=== PATIENT | female | born 1955 | race Caucasian/White ===

== ENCOUNTER → 2021-01-06 | Emergency (ER) | payer OTHER ==
[~2021-01-06] VITALS: Ht 162.6 cm; Wt 149.7 kg
[~2021-01-06] MED LIST: ACTEMRA400 MG/20 IV; BISCOLAX10 MG RC; CARAFATE 1 GM TA1 G1 PO; COLACE100 MG PO; FOLIC ACID1 MG PO; LEVOTHYROXINE 0.1 MG PO; MAG-AL LIQUID30 ML PO; METHOTREXATE 22.5 M1 PO; NORCO 5-325 TA1 EACH PO; OXYCONTIN10 M1 PO; PERCOCET PO; PREDNISONE 20 M20 MG PO; PREDNISONE 5 MG5 M1 PO; REMICADE 1100 MG/VIA IV; SENOKOT-S1 TA1 PO; TYLENOL325 MG PO; VITAMIN D2000 UNIT PO; XARELTO10 MG PO
[2021-01-06 16:17] VITALS: BP 144/65
[2021-01-06 17:50] LABS: ABSOLUTE NEUTROPHILS 7.7 thou/uL (1.4-8.2); BASOPHILS 0.7 % (0.0-2.0); HEMATOCRIT 48.3 % (37.0-47.0); HEMOGLOBIN 16.5 gm/dL (12.0-15.0); LYMPHOCYTES 14.6 % (24.0-44.0); MCHC 34.2 g/dL (28.0-37.0); MCV 99.5 fL (80.0-100.0); MONOCYTES 12.6 % (1.0-8.0); PLATELET COUNT 150 thou/uL (150-400); POLYS 70.1 % (36.0-66.0); RBC 4.85 mil/uL (4.20-5.00); RDW 13.5 % (10.5-14.5)
[2021-01-06 18:03] LABS: APTT 23.9 Seconds (24.5-32.8); D-DIMER 1.15 ug/mLFEU (0.19-0.50); INR 1.03; PROTIME 11.2 Seconds (10.5-12.1)
[2021-01-06 18:07] LABS: CALCIUM 9.2 mg/dL (8.5-10.1); CREATININE 0.8 mg/dL (0.6-1.0)
[2021-01-06 18:12] LABS: ALBUMIN 3.8 g/dL (3.4-5.0); TOTAL BILIRUBIN 0.3 mg/dL (0.2-1.0); TOTAL PROTEIN 7.1 g/dL (6.4-8.2)
[2021-01-06 18:36] LABS: URINE BILIRUBIN NEGATIVE (Negative); URINE BLOOD NEGATIVE (Negative); URINE CLARITY CLEAR; URINE COLOR YELLOW; URINE GLUCOSE-RANDOM* NEGATIVE (Negative); URINE KETONES NEGATIVE (Negative); URINE LEUKOCYTES-REFLEX NEGATIVE (Negative); URINE NITRITE-REFLEX NEGATIVE (Negative); URINE PROTEIN (DIPSTICK) NEGATIVE (Negative); URINE SPECIFIC GRAVITY >= 1.030 (1.005-1.035); URINE UROBILINOGEN 0.2 E.U./dl (0.2-1.0)
[2021-01-06 22:15] VITALS: BP 00/00; BP 110/72
== END ==
LOC: ER 16:10 → EROBS 21:15
PROVIDERS: Nurse Practitioner
DX: U07.1 COVID-19 (principal); J10.1 Influenza due to other identified influenza virus with other respiratory manifestations; R06.00 Dyspnea, unspecified; J12.82 Pneumonia due to coronavirus disease 2019; E03.9 Hypothyroidism, unspecified; Z79.899 Other long term (current) drug therapy; Z79.891 Long term (current) use of opiate analgesic; Z88.0 Allergy status to penicillin; Z91.041 Radiographic dye allergy status

== ENCOUNTER 2021-01-08 14:45 | Inpatient (IN) | payer OTHER ==
[~2021-01-08] VITALS: Ht 162.6 cm; Wt 149.7 kg
[~2021-01-08 14:45] MED LIST changes: -ACTEMRA400 MG/20 IV
[2021-01-08 14:51] VITALS: BP 106/68
[2021-01-08 16:18] LABS: HEMATOCRIT 48.1 % (37.0-47.0); HEMOGLOBIN 16.2 gm/dL (12.0-15.0); MCH 33.8 pg (26.0-34.0); MCHC 33.7 g/dL (28.0-37.0); MCV 100.2 fL (80.0-100.0); RBC 4.8 mil/uL (4.20-5.00); RDW 13.6 % (10.5-14.5); WBC 13.2 thou/uL (4.0-11.0)
[2021-01-08 16:24] LABS: ANION GAP 10 mmol/L (7-16); BUN 19 mg/dL (7-18); CALCIUM 8.5 mg/dL (8.5-10.1); CHLORIDE 108 mmol/L (98-107); CO2 28 mmol/L (21-32); GLUCOSE 104 mg/dL (74-106); POTASSIUM 4.1 mmol/L (3.5-5.1); SODIUM 146 mmol/L (136-145)
[2021-01-08 16:33] LABS: ALBUMIN 3.7 g/dL (3.4-5.0); SGOT 35 U/L (15-37); SGPT 50 U/L (30-65); TOTAL BILIRUBIN 0.5 mg/dL (0.2-1.0); TOTAL PROTEIN 6.9 g/dL (6.4-8.2); TROPONIN-I <0.06 ng/mL (<0.06)
[2021-01-09 01:00] VITALS: BP 137/75
[2021-01-09 05:19] VITALS: BP 143/69
[2021-01-09 06:00] VITALS: BP 128/73
--- NOTE | 2021-01-09 06:44 | NUR ---
PT ADMITTED FROM ER WITH C/O SOB AT 0600.PT IS A/O X4.PT IS UP WITH X1 ASSIST TO THE BATHROOM AND USES A SCOOTER FOR MOBILIZATION.PT ADMISSION STARTED.PT IS ON 2L OF O2 VIA NC.PT HAS A HISTORY OF RHEUMATOID ARTHRITIS AND RATE PAIN 6/10 WHEN SHE IS IN PAIN.WILL ENDORSE TO DAY NURSE
[2021-01-09 08:39] VITALS: BP 138/67
[2021-01-09 08:47] LABS: ABSOLUTE NEUTROPHILS 6.7 thou/uL (1.4-8.2); BASOPHILS 0.5 % (0.0-2.0); EOSINOPHILS 2.5 % (0.0-3.0); HEMATOCRIT 46.3 % (37.0-47.0); HEMOGLOBIN 15.5 gm/dL (12.0-15.0); LYMPHOCYTES 19.5 % (24.0-44.0); MCH 33.8 pg (26.0-34.0); MCHC 33.4 g/dL (28.0-37.0); MCV 101.3 fL (80.0-100.0); MONOCYTES 13.7 % (1.0-8.0); PLATELET COUNT 144 thou/uL (150-400); POLYS 63.8 % (36.0-66.0); RBC 4.57 mil/uL (4.20-5.00); RDW 13.4 % (10.5-14.5); WBC 10.4 thou/uL (4.0-11.0)
[2021-01-09 09:05] LABS: CALCIUM 8.3 mg/dL (8.5-10.1); CREATININE 0.7 mg/dL (0.6-1.0); MAGNESIUM 1.6 mg/dL (1.8-2.4); PHOSPHORUS 4.1 mg/dL (2.5-4.9); POTASSIUM 4.1 mmol/L (3.5-5.1)
--- NOTE | 2021-01-09 09:22 | EKG ---
[address] [address] ELECTROCARDIOGRAM REPORT Name: TERESA KIRKMejia YOUSIFE Room #: 464-P ADM IN M.R.#: [id number] Admission: 01/08/21 Attend Phys: Katja Hobbs MD Discharge: Date of : 59 Report #: [id number] [facility] ED Test Date: 2021-01-08 Test Time: 15:00:45 Pat Name: RM KIRK Department: Room: 464 Gender: F Manager Park: RONALDO : 1955 Requested By: Juani Arias Order Number: [id number] MD: Balbir Jamison Measurements Intervals [place] Rate: 76 P: 44 TX: 143 QRS: 8 QRSD: 90 T: 34 QT: 326 QTc: 367 Interpretive Statements Sinus arrhythmia Probable left atrial enlargement Low voltage, precordial leads Baseline wander in lead(s) V1 Compared to ECG 01/28/2014 14:00:30 Low QRS voltage now present Sinus rhythm no longer present Electronically Signed On 01-09-2021 9:22:33 CDT by Balbir Jamison [email or web address] <ELECTRONICALLY SIGNED> By: Balbir Jamison MD, FACC 01/09/21 0922 1500 1500 Balbir Jamison MD, [facility] /EPI
[2021-01-09] MEDS ORDERED: ACTEMRA400 MG/20 IV (15:03)
--- NOTE | 2021-01-09 17:46 | NUR ---
Patient is aware she will be NPO after midnight for Kyphoplastay tomorrow. She is having pain to her left side and back. Pain medication given. She is most comfortable supine with little movement.
[2021-01-09 20:20] VITALS: BP 139/82
--- NOTE | 2021-01-10 03:15 | NUR ---
PT CARE ASSUMED WITH PT AT BEDSIDE AT 1900.PT IS A/O X4.PT IS UP WITH STANDBY ASSIST TO BATHROOM AND CALLS APPROPRIETELY FOR HELP.PT C/O GENERALIZED PAIN AND PAIN MANAGED WITH OXYCODONE.PT IS ON ROOM AIR AND NO C/O OF SOA WITH ACTIVITY.WILL CONTINUE TO MONITOR
[2021-01-10 07:42] VITALS: BP 136/70
[2021-01-10 08:55] LABS: BASOPHILS 0.3 % (0.0-2.0); HEMOGLOBIN 14.8 gm/dL (12.0-15.0); LYMPHOCYTES 8.4 % (24.0-44.0); MCH 33.3 pg (26.0-34.0); MCHC 32.9 g/dL (28.0-37.0); MCV 101.1 fL (80.0-100.0); MONOCYTES 10.2 % (1.0-8.0); PLATELET COUNT 133 thou/uL (150-400); POLYS 81.1 % (36.0-66.0); RBC 4.45 mil/uL (4.20-5.00); RDW 13.6 % (10.5-14.5); WBC 19.7 thou/uL (4.0-11.0)
[2021-01-10 09:20] LABS: ALBUMIN 3.5 g/dL (3.4-5.0); CALCIUM 8.7 mg/dL (8.5-10.1); CREATININE 0.8 mg/dL (0.6-1.0); MAGNESIUM 2.1 mg/dL (1.8-2.4); PHOSPHORUS 3.9 mg/dL (2.6-4.7); POTASSIUM 4.2 mmol/L (3.5-5.1); TOTAL BILIRUBIN 0.4 mg/dL (0.2-1.0); TOTAL PROTEIN 6.6 g/dL (6.4-8.2)
[2021-01-10 16:42] VITALS: BP 146/61
--- NOTE | 2021-01-10 17:02 | NUR ---
PT ADMITTED RELATED TO ACUTE HYPOXEMIC RESPITATORY FAILURE. CM REVIEWED CHART AND SPOKE WITH CARE TEAM. CM MET WITH PT AT BEDSIDE THIS DAY. PT APPEARED TO BE A&O X4. CM ROLE INTRODUCED. PT INDICATED SHE LIVES IN A HOUSE WITH HER SIG OTHER WITH 2 STEPS TO ENTER AND NO STEPS INSIDE. PT INDICATED SHE HAS A SCOOTER, CANE, AND FWW FOR USE AT HOME. 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 EXERCISE OX TESTING DONE AND PT DIDN'T QUALIFY FOR HOME O2 UPON DC. PT HAD REPEAT CHEST XRAY DONE. CARE TEAM INDICATED NO DC HOME THIS DAY. CM FOLLOWING REGARDING DC PLANNING.
[2021-01-10 19:36] VITALS: BP 135/78
--- NOTE | 2021-01-10 20:15 | NUR ---
Assumed pt care this am, pt is SOB with exertion was able to work with PT today. Diet and medications are tolerated well. Bronch is scheduled for OP, chest x-ray was done in the pm. POC followed. Endorsed to the night nurse.
--- NOTE | 2021-01-11 05:48 | NUR ---
Assumed pt care at 1900. A/OX4,VSS.Up with SBA/cane,gets dyspnea on exertion on RA and declines need for oxygen. All meds administered as ordered w/o problems. C/o back pain medicated per EMAR with relief reported. Resting on the recliner at this time,will continue to monitor pt.
[2021-01-11 07:00] VITALS: BP 149/79
[2021-01-11 07:33] VITALS: BP 122/83
[2021-01-11 08:17] LABS: HEMATOCRIT 45.3 % (37.0-47.0); HEMOGLOBIN 15.2 gm/dL (12.0-15.0); MCH 33.7 pg (26.0-34.0); MCHC 33.5 g/dL (28.0-37.0); MCV 100.7 fL (80.0-100.0); PLATELET COUNT 155 thou/uL (150-400); RDW 13.5 % (10.5-14.5); WBC 20.1 thou/uL (4.0-11.0)
[2021-01-11 08:42] LABS: ALBUMIN 3.7 g/dL (3.4-5.0); CALCIUM 8.5 mg/dL (8.5-10.1); CREATININE 0.8 mg/dL (0.6-1.0); POTASSIUM 4.4 mmol/L (3.5-5.1); TOTAL BILIRUBIN 0.4 mg/dL (0.2-1.0)
[2021-01-11 09:02] LABS: ABSOLUTE NEUTROPHILS 17.7 thou/uL (1.4-8.2); PLATELET ESTIMATE NORMAL
--- NOTE | 2021-01-11 10:54 | NUR ---
PT IS A&O*4, ROOM AIR, NO PAIN, CONGESTIVE COUGH WITHOUT SPUTUM OBERSERVED. PT GET UP BY CHAIM. NSR ON TELE. BRONCHOSCOPY IS SCHEDULED TOMORROW AND POSSIBLE BE DC TODAY TO HOME. WILL KEEP MONITOR PT'S SAFETY AND GIVE IV ABX PER ORDER.
[2021-01-11] MEDS ORDERED: LEVOFLOXACIN750 MG PO ×2 (11:59→14:05)
[2021-01-11] MEDS ORDERED: PREDNISONE 20 M20 M1 PO ×2 (11:59→14:05)
[2021-01-11] MEDS ORDERED: TUSSIN COU15 MG/5 M1 PO ×2 (11:59→14:05)
[2021-01-11 12:08] VITALS: BP 122/83
--- NOTE | 2021-01-11 12:12 | NUR ---
CARE TEAM INDICATED THAT PT IS MEDICALLY STABLE TO DISCHARGE HOME THIS DAY. PT IS TO DC HOME TO SELF CARE. PT'S DIDN'T QUALIFY FOR HOME O2 AND CARE TEAM INDICATED SHE DOESN'T NEED HH SERVICES UPON DC. PT HAS ALL OTHER NEEDED DME. FAMILY TO PROVIDE TRANSPORT HOME. NO OTHER CM INTERVENTION INDICATED. CASE CLOSED.
--- NOTE | 2021-01-11 13:12 | 2DMMODE ---
[facility] [place] [address] 2 D/M-MODE ECHOCARDIOGRAM Name: YELENARM CONCEPCION Room #: 464-P ADM IN M.R.#: [id number] Admission: 01/08/21 Attend Phys: Katja Hobbs MD Discharge: Date of : 59 Report #: [id number] THIS REPORT FOR: cc: Shoshana Burgos MD, Melanie MD Santiago, Patrick MD [facility] ~ APPROVED REPORT Study performed: 01/11/2021 12:35:23 EXAM: Comprehensive 2D, Doppler, and color-flow Echocardiogram Patient Location: Bedside Room #: 464 Status: routine BSA: 2.42 HR: 80 bpm BP: 122/83 mmHg Rhythm: NSR Other Information Study Quality: Fair Technically limited study due to morbid obesity, COPD. Indications Pneumonia, CHF new onset, COPD. 2D Dimensions RVDd: 39.35 mm IVSd: 12.52 (7-11mm) LVOT Diam: 19.64 (18-24mm) LVDd: 33.29 mm PWd: 12.89 (7-11mm) LVDs: 24.59 (25-40mm) Left Atrium: 45.83 (27-40mm) Aortic Root: 27.67 mm Volumes Left Atrial Volume (Systole) Single Plane 4CH: 41.88 mL Single Plane 2CH: 48.09 mL LA ESV Index: 20.00 mL/m2 Aortic Valve AoV Peak Martinez.: 1.86 m/s AO Peak Gr.: 13.87 mmHg LVOT Max P.[address] [facility] [address] [place] [address] 2 D/M-MODE ECHOCARDIOGRAM Name: RM KIRK Room #: 464-P [facility] IN [facility]#: [id number] Admission: 01/08/21 Attend Phys: Katja Hobbs, Discharge: Date of : 59 Report #: [id number] LVOT Max V: 1.08 m/s MARYBETH Vmax: 1.75 cm2 Mitral Valve E/A Ratio: 1.4 MV Decel. Time: 169.24 ms MV E Max Martinez.: 1.13 m/s MV A Martinez.: 0.79 m/s MV PHT: 49.08 ms IVRT: 72.66 ms Pulmonary Valve PV Peak Martinez.: 1.27 m/s PV Peak Gr.: 6.42 mmHg Pulmonary Vein P Vein S: 0.90 m/s P Vein A: 0.36 m/s P Vein D: 0.53 m/s P Vein A Dur.: 96.9 msec P Vein S/D Ratio: 1.70 Tricuspid Valve RAP Estimate: 15.00 mmHg Left Ventricle The left ventricle is normal size. There is normal LV segmental wall motion. Mild concentric left ventricular hypertrophy. Left ventricular systolic function is normal. LVEF is 55-60%. The left ventricular diastolic function is normal. Right Ventricle The right ventricle is normal size. The right ventricular systolic function is normal. Atria The left atrium size is normal. The right atrium size is normal. Aortic Valve The aortic valve is not well visualized. No aortic regurgitation is present. There is no aortic valvular stenosis. Mitral Valve The mitral valve is normal in structure. Trace mitral regurgitation. No evidence of mitral valve stenosis. Tricuspid Valve The tricuspid valve is normal in structure. There is no tricuspid [facility] [address] [place] [address] 2 D/M-MODE ECHOCARDIOGRAM Name: RM KIRK Room #: 464-P [facility] IN M.R.#: [id number] Admission: 01/08/21 Attend Phys: Katja Hobbs, Discharge: Date of : 59 Report #: [id number] valve regurgitation noted. Unable to assess PA pressure. Pulmonic Valve Pulmonic valve is not well visualized. Great Vessels The aortic root is normal in size. IVC is dilated and collapses <50% with inspiration. Pericardium There is no pericardial effusion. <Conclusion> Technically difficult study Normal left ventricle size Mild LVH Ejection fraction 60% Normal right ventricuLar size/function Normal atrial size Normal aortic/mitral valve structure and function No tricuspid valve insufficiency Normal aortic root size No pericardial effusion <ELECTRONICALLY SIGNED> By: Balbir Jamison MD, FACC 01/11/211311 11 11 Balbir Jamison MD, [facility] /INF
[2021-01-11 13:40] VITALS: BP 122/83
[2021-01-12] MEDS ORDERED: HYDROCODON-ACE1 EAC7 PO (13:46)
[2021-01-12] MEDS ORDERED: DOXYCYCLINE HY100 M3 PO (13:47)
[2021-01-12] MEDS ORDERED: PLAQUENIL200 MG (13:48)
[2021-01-12] MEDS ORDERED: LEVOTHYROXINE100 MC2 PO (14:38)
[2021-01-12] MEDS ORDERED: LEVOFLOXACIN750 MG PO (14:38)
== END 2021-01-11 15:29 | disposition home or self-care (01) | DRG 871 ==
LOC: ER 14:45 → 4W 18:22 → EROBS 18:22 → 4W 01-09 05:43
PROVIDERS: Nurse Practitioner Family; ADMIT Internal Medicine; ATTEND Internal Medicine
DX: A41.9 Sepsis, unspecified organism (principal); J96.01 Acute respiratory failure with hypoxia; J18.9 Pneumonia, unspecified organism; J44.0 Chronic obstructive pulmonary disease with (acute) lower respiratory infection; R04.2 Hemoptysis; Z68.43 Body mass index [BMI] 50.0-59.9, adult; M06.9 Rheumatoid arthritis, unspecified; E03.9 Hypothyroidism, unspecified; D72.829 Elevated white blood cell count, unspecified; F17.210 Nicotine dependence, cigarettes, uncomplicated; R91.8 Other nonspecific abnormal finding of lung field; E86.0 Dehydration; E66.01 Morbid (severe) obesity due to excess calories; Z96.653 Presence of artificial knee joint, bilateral; R59.1 Generalized enlarged lymph nodes; D75.1 Secondary polycythemia; Z20.822 Contact with and (suspected) exposure to COVID-19; Z90.49 Acquired absence of other specified parts of digestive tract; Z88.0 Allergy status to penicillin; Z91.041 Radiographic dye allergy status; Z82.69 Family history of other diseases of the musculoskeletal system and connective tissue; Z71.6 Tobacco abuse counseling; Z79.899 Other long term (current) drug therapy
CPT/HCPCS: 10040

== ENCOUNTER 2021-01-13 10:09 | Inpatient (IN) | payer OTHER ==
[2021-01-13] VITALS (35 sets, daily range): BP systolic 111–168; BP diastolic 65–88
[~2021-01-13] VITALS: Ht 162.6 cm; Wt 149.7 kg
[~2021-01-13 10:09] MED LIST changes: +ACTEMRA400 MG/20 IV; +DOXYCYCLINE HY100 M3 PO; +HYDROCODON-ACE1 EAC7 PO; +LEVOFLOXACIN750 MG PO; +LEVOTHYROXINE100 MC2 PO; +PLAQUENIL200 MG; +PREDNISONE 20 M20 M1 PO; +TUSSIN COU15 MG/5 M1 PO
--- NOTE | 2021-01-13 19:43 | NUR ---
CONSULTED TO PLACE A CENTRAL LINE. LINE PLACED PER MEDICAL NECESSITY FAMILY WAS NOT AVAILABLE. A #6F TRIPLE LUMEN CENTRAL LINE WAS PLACED AFTER A BEDSIDE TIMEOUT WAS COMPLETED. THE 25CM LINE WAS ADVANCED WITHOUT DIFFICULTY. A STAT CHEST XRAY WAS ORDERED FOR CONFIRMATION
--- NOTE | 2021-01-13 19:45 | NUR ---
PATIENT ARRIVES TO ICU AT 1810 WITH ANESTHESIA AND IR STAFF. PATIENT INTUBATED. RESTRAINTS INITIATED AT [address] MATHUR. PATIENT ON PROPOFOL, FENTANYL AND VERSED GTT FOR VENTILATOR SEDATION. FAMILY NOIFIED ABOUT PATIENT STATUS. CENTAL LINE PLACED BY IV TEAM.
--- NOTE | 2021-01-13 20:00 | NUR ---
LABS OBTAINED AND ABAD INSERTED PER ORDER USING STERILE TECHNIQUE. RNS JACKIE AND RICARDO AT BEDSIDE TO ASSIST AND ENSURE STERILITY OF INSERTION.
[2021-01-13 20:01] LABS: CALCIUM 7.8 mg/dL (8.5-10.1); CREATININE 0.7 mg/dL (0.6-1.0); POTASSIUM 3.9 mmol/L (3.5-5.1)
[2021-01-13 20:02] LABS: MAGNESIUM 1.7 mg/dL (1.8-2.4)
[2021-01-13 20:11] LABS: APTT 25.6 Seconds (24.5-32.8); INR 1.2
--- NOTE | 2021-01-13 20:30 | NUR ---
MRSA SWAB OBTAINED AND SENT TO LAB PER ORDER. OGT PLACED. PLACEMENT CONFIRMED BY X-RAY AND AUDIBLE AIR BOLUS. OGT THEN PLACED TO WS
[2021-01-13 21:16] LABS: BE(vivo) -0.4 mmol/L (-2 to +3); HCO3 27.7 mmol/L (22.0-26.0); PCO2 59.7 mmHg (35.0-45.0); PO2 215.4 mmHg (80.0-100.0); sO2 99.3 % (92.0-98.0)
[2021-01-13 21:17] LABS: pH 7.285 (7.360-7.450)
[2021-01-14] VITALS (47 sets, daily range): BP systolic 99–156; BP diastolic 45–82
[2021-01-14 05:20] LABS: HEMATOCRIT 42.9 % (37.0-47.0); HEMOGLOBIN 14.3 gm/dL (12.0-15.0); MCH 33.8 pg (26.0-34.0); MCHC 33.3 g/dL (28.0-37.0); MCV 101.4 fL (80.0-100.0); RBC 4.23 mil/uL (4.20-5.00); RDW 13.4 % (10.5-14.5); WBC 11.8 thou/uL (4.0-11.0)
[2021-01-14 06:23] LABS: CALCIUM 7.5 mg/dL (8.5-10.1); CREATININE 0.6 mg/dL (0.6-1.0); POTASSIUM 3.6 mmol/L (3.5-5.1)
--- NOTE | 2021-01-14 06:30 | NUR ---
PT REMAINED STABLE ENTIRE SHIFT. NO SIGNS OF VISIBLE BLEEDING FROM DOUBLE LUMEN ETT. TOLERATED VENT PER SETTINGS. ABLE TO WEAN FI02 DOWN TO 40%. AFEBRILE. MONITOR SHOWING SR. GENERALIZED EDEMA. 2/2 PULSES. CENTRAL LINE AND ABAD INTACT. OGT TO LIWS. BILE COLORED DRAINAGE NOTED. ADEQUATE CLOUDY URINE OUTPUT. NO BM THIS SHIFT. BLOOD SUGARS WNL. NO COVERAGE NEEDED. SCDS ON. MODERATE SEDATION. FENTANYL, VERSED AND PROPOFOL INFUSING. PERSONAL BELONGINGS BROUGHT FROM PREVIOUS DEPARTMENT AND PLACED IN ROOM CABINET. RESTRAINTS IN USE. CLRT IN USE.
--- NOTE | 2021-01-14 07:10 | NUR ---
REPORT GIVEN TO ONCOMING RN.
--- NOTE | 2021-01-14 10:26 | NUR ---
[facility] - [phone] isaura.
--- NOTE | 2021-01-14 11:23 | NUR ---
Chart review. Was just dc on 01/11 home no needs. Discussed during los and unite round. Possible will have another bronch today and then be able to extubate. Check paper chart and scanned images, no dpoa on file. She has been with her spouse eddy for a while but not . Cm visited with daughter and patient sister via phone cal1. Belkys independent when she is feeling ok, has cane, walker and scooter. 2 steps to enter the home and no stair inside she has to do. manage own medication and drives vehicle. Anticipated home no needs. Will cont following as needed for dc needs.
[2021-01-15] VITALS (13 sets, daily range): BP systolic 115–147; BP diastolic 56–92
[2021-01-15 05:04] LABS: HEMOGLOBIN 15.1 gm/dL (12.0-15.0); MCH 33.5 pg (26.0-34.0); MCHC 32.9 g/dL (28.0-37.0); MCV 101.9 fL (80.0-100.0); RBC 4.52 mil/uL (4.20-5.00); RDW 13.7 % (10.5-14.5); WBC 16.3 thou/uL (4.0-11.0)
--- NOTE | 2021-01-15 06:30 | NUR ---
PT DROWSY MOST OF SHIFT. C/O GENERALIZED CHRONIC BACK PAIN. MORPHINE GIVEN PER PRN ORDER. EFFECTIVE RESULTS. AFEBRILE. SR ON MONITOR. NS INFUSING AT 100 ML/HR. CENTRAL LINE DRESSING CHANGED. CLEAR LIQUIDS TOLERATED PO. BLOOD SUGAR CHECKED. NO COVERAGE NEEDED. ABAD INTACT. ADEQUATE AMOUNT OF URINE. NO BM. CHRONIC CONGESTED, OCCASSIONALLY PRODUCTIVE COUGH. PT SELF SUCTIONS ORALLY AND SELF TURNS IN BED.
--- NOTE | 2021-01-15 07:25 | NUR ---
REPORT GIVEN TO ONCOMING RN.
--- NOTE | 2021-01-15 19:42 | NUR ---
PT TRANFERED FROM ICU ABOUT 1400PM, PT IS A&OX4, PT IS ON ROOM AIR, PT'S VS ARE STABLE, PT DENIES SOB AND PAIN, PT STILL HAS SOME COUGHING , BUT NO BLOOD SPUTUM, PT'S ABAD CATHETER HAS DC AT 1700PM, PT HAD VOID AT 1830PM, PT CAN GO TO BATHROOM WITHOUT ASSIST , PT'S FAMLY STAY AT PT'S BEDSIDE. PT IS TOLERATIVE HER HEART HEALTHY DAET.
[2021-01-16 03:15] VITALS: BP 154/62
[2021-01-16 06:39] LABS: HEMATOCRIT 45.3 % (37.0-47.0); HEMOGLOBIN 15.2 gm/dL (12.0-15.0); MCH 33.8 pg (26.0-34.0); MCHC 33.6 g/dL (28.0-37.0); MCV 100.8 fL (80.0-100.0); PLATELET COUNT 165 thou/uL (150-400); RBC 4.49 mil/uL (4.20-5.00); RDW 13.7 % (10.5-14.5); WBC 24.5 thou/uL (4.0-11.0)
[2021-01-16 06:47] LABS: CALCIUM 8.3 mg/dL (8.5-10.1); CREATININE 0.8 mg/dL (0.6-1.0); POTASSIUM 4.2 mmol/L (3.5-5.1)
[2021-01-16 07:21] LABS: ABSOLUTE NEUTROPHILS 20.6 thou/uL (1.4-8.2); PLATELET ESTIMATE NORMAL
[2021-01-16 07:37] VITALS: BP 143/68
--- NOTE | 2021-01-16 07:58 | NUR ---
SLEPT MOST OF SHIFT. UP AD CHAIM IN ROOM WITHOUT COMPLAINTS THIS AM. PLANS FOR DISCHARGE. WORKING ON GOALS AND PLAN OF CARE FOR NOC. CONTINUE TO ASSES.
[2021-01-16 14:32] VITALS: BP 143/68
--- NOTE | 2021-01-16 16:49 | NUR ---
PT ALERT AND ORIENTED TIMES FOUR. VSS. SR ON TELE. PT SOA ON EXCERTION. PT C/O BACK PAIN PRN MEDICATIONS GIVEN WITH GOOD RELEIF. PT UP TO RESTROOM WITH STANDBY ASSIST. PT VERY DISCHARGE FOCUSED THIS MORNING. PT AT BEDSIDE. WILL CONTINUE TO MONITOR.
--- NOTE | 2021-01-17 13:07 | PATH ---
[facility] [address] [address] PATHOLOGY RPT PROCEDURE Name: BELKYS KIRK Room #: 215-P [facility] IN M.R.#: [id number] Admission: 01/13/21 Date of : 59 Discharge: 01/16/21 Report #: [id number] Path Case #: [id number] L[facility] Accession Number: [id number] . 01 Material submitted: . lobe - RIGHT UPPER LOBE SUB DIANA TBNA BIOPSY. Modifiers: right, upper, SUB DIANA . 01 Clinical history: . BRONCHOSCOPY LUNG MASS 1247 RUL SUB DIANA TBNA BIOPSY . 02 Diagnosis: Tissue designated as "right upper lobe sub diana", TBNA biopsy: - POSITIVE FOR MALIGNANCY; MODERATE TO POORLY DIFFERENTIATED SQUAMOUS CELL CARCINOMA. - Specimen predominantly (90%) comprised of blood, necrosis, fibrinoid degeneration as well as calcifications. - Focal lymphoid tissue present, compatible with sampling of lymph node. (IUV:pit; 01/14/2021) QTP 01/14/2021 1504 Local . 02 Comment: Properly controlled immunohistochemical stains are performed on block A1 and include p63, TTF-1, as well as synaptophysin. The tumor cells show strong nuclear reactivity with p63 supporting the diagnosis rendered. The remaining immunohistochemical stains are nonreactive. . A car sales representative focus was co-reviewed by Dr. Glory Morgan who concurs with the diagnosis. Findings of this case are discussed with Dr. Enrico Reese at approximately 2:45 pm on 01/14/2021. (IUV:pit; 01/14/2021) . 02 Electronically signed: . Theresa Eric MD, Pathologist NPI- [id number] . 01 Gross description: . The specimen is received in formalin, labeled "Belkys Kirk and SUKH subcarina TBNA biopsy". It consists of multiple grubbs-white, irregular soft tissue fragments measuring 1.1 x 0.3 x 0.1 cm in aggregate. The specimen is placed in a biopsy bag and entirely submitted in A1. (MRF; 01/13/2021) MFE/MFE 01/13/2021 2103 Local . 02 Pathologist provided ICD-10: [address] [address] PATHOLOGY RPT PROCEDURE Name: BELKYS KIRK Room #: 215-P DIS IN M.R.#: [id number] Admission: 01/13/21 Date of : 59 Discharge: 01/16/21 Report #: [id number] Path Case #: [id number] C34.11, J85.0 . 02 CPT . [id number], [id number], [id number] Specimen Comment: A courtesy copy of this report has been sent to [phone] Specimen Comment: Report sent to Performed at: [address] [facility], [place], [place] [id number] MD Sandoval Arreguin MD Phone: [phone] Performed at: [address] [facility] [id number] MD Theresa Eric MD Phone: [phone]
== END 2021-01-16 17:10 | disposition home or self-care (01) | DRG 166 ==
LOC: TBA 10:09 → PUL 10:09 → ICU 18:42 → 2N 01-15 13:07
PROVIDERS: Internal Medicine Pulmonary Disease; ADMIT Pediatrics; ATTEND Pediatrics
PROC: 02HV33Z Insertion of Infusion Device into Superior Vena Cava, Percutaneous Approach (ICD-10-PCS; principal; 2021-01-13)
PROC: B31T1ZZ Fluoroscopy of Left Pulmonary Artery using Low Osmolar Contrast (ICD-10-PCS; principal; 2021-01-13)
PROC: 0BH17EZ Insertion of Endotracheal Airway into Trachea, Via Natural or Artificial Opening (ICD-10-PCS; principal; 2021-01-13)
PROC: B3101ZZ Fluoroscopy of Thoracic Aorta using Low Osmolar Contrast (ICD-10-PCS; principal; 2021-01-13)
PROC: 03L Upper Arteries, Occlusion (ICD-10-PCS; principal; 2021-01-13)
PROC: B31S1ZZ Fluoroscopy of Right Pulmonary Artery using Low Osmolar Contrast (ICD-10-PCS; principal; 2021-01-13)
PROC: 5A1935Z Respiratory Ventilation, Less than 24 Consecutive Hours (ICD-10-PCS; principal; 2021-01-13)
PROC: 0BBB8ZX Excision of Left Lower Lobe Bronchus, Via Natural or Artificial Opening Endoscopic, Diagnostic (ICD-10-PCS; principal; 2021-01-13)
PROC: 0BJ08ZZ Inspection of Tracheobronchial Tree, Via Natural or Artificial Opening Endoscopic (ICD-10-PCS; 2021-01-14)
DX: C34.32 Malignant neoplasm of lower lobe, left bronchus or lung (principal); J96.01 Acute respiratory failure with hypoxia; R04.2 Hemoptysis; J95.830 Postprocedural hemorrhage of a respiratory system organ or structure following a respiratory system procedure; Z68.43 Body mass index [BMI] 50.0-59.9, adult; C10.4 Malignant neoplasm of branchial cleft; M06.9 Rheumatoid arthritis, unspecified; E03.9 Hypothyroidism, unspecified; Z96.653 Presence of artificial knee joint, bilateral; D75.1 Secondary polycythemia; E66.01 Morbid (severe) obesity due to excess calories; R59.0 Localized enlarged lymph nodes; J44.9 Chronic obstructive pulmonary disease, unspecified; Y84.8 Other medical procedures as the cause of abnormal reaction of the patient, or of later complication, without mention of misadventure at the time of the procedure; Z20.822 Contact with and (suspected) exposure to COVID-19; Z87.891 Personal history of nicotine dependence; Z88.0 Allergy status to penicillin; Y92.89 Other specified places as the place of occurrence of the external cause; Z91.048 Other nonmedicinal substance allergy status; Z90.49 Acquired absence of other specified parts of digestive tract
CPT/HCPCS: 10078; 62110; 62900; 65105; 65129

== ENCOUNTER → 2021-01-25 | Outpatient (CLI) | payer OTHER | LOC: PET 11:23 | PROVIDERS: ATTEND Pediatrics | DX: R91.8 Other nonspecific abnormal finding of lung field (principal) ==